=== PATIENT | female | born 1995 ===

== ENCOUNTER 2018-05-06 20:02 | Emergency (ER) | payer MEDICAID, OTHER ==
[2018-05-06 21:20] VITALS: BMI 22.6
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
[2018-05-06 21:34] VITALS: BP 119/72; PULSE 79; RESP 15; TEMP 98; O2SAT 100
--- NOTE | 2018-05-07 10:28 | RAD ---
PROCEDURE: Right Hand Radiographs. HISTORY: r/o foreign body COMPARISON: None. FINDINGS: BONES: No acute fracture or destructive bony lesion identified. JOINTS: Normal. No osteoarthritic changes. SOFT TISSUES: No retained radiodense foreign body or emphysema soft tissue changes are identified. OTHER FINDINGS: None. IMPRESSION: Unremarkable right hand radiographs. No retained radiodense foreign body identified throughout soft tissues. No acute fracture dislocation identified.
== END 2018-05-06 23:08 | disposition home or self-care (01) ==
LOC: H.ER 20:02
DX: S60.229A Contusion of unspecified hand, initial encounter (principal); V49.9XXA Car occupant (driver) (passenger) injured in unspecified traffic accident, initial encounter